=== PATIENT | male | born 1990 | race African-American/Black ===

== ENCOUNTER 2017-11-05 07:37 | Emergency (ER) | payer BC, OTHER ==
--- NOTE | 2017-11-05 10:19 | RAD ---
THREE VIEWS RIGHT WRIST: DATE: 11/05/17. HISTORY: The patient re-injured the wrist at work. History of prior fracture. COMPARISON: 02/18/17. FINDINGS: There is a fracture involving the proximal pole of the scaphoid bone with a degree of separation jakob uring 2 mm and there is also trace lateral displacement of the distal fracture with relation to the p roximal fracture fragment. This fracture is in similar location to fracture noted on prior study in 2017. No additional fracture is seen, and there is no evidence of a dislocation. IMPRESSION: 1. and slightly displaced fracture involving the proximal pole of the scaphoid bone. This is in similar location to a fracture seen involving the scaphoid bone on the study in 2017. However , given widening and separation of this fracture fragment as well as site of fracture, orthopedic con sultation is recommended. 2. On the oblique view, there is a suggestion of a rounded area of lucency which could be related to associated cyst in the region of fracture. 3. Remote fracture deformity of the right 5th metacarpal. CODE T POS: [facility]
== END 2017-11-05 09:42 | disposition home or self-care (01) ==
LOC: ERS 07:37
DX: S62.031A Displaced fracture of proximal third of navicular [scaphoid] bone of right wrist, initial encounter for closed fracture (principal); F17.210 Nicotine dependence, cigarettes, uncomplicated; Z71.6 Tobacco abuse counseling; Z79.899 Other long term (current) drug therapy; W20.8XXA Other cause of strike by thrown, projected or falling object, initial encounter; Y92.69 Other specified industrial and construction area as the place of occurrence of the external cause; Y99.0 Civilian activity done for income or pay
CPT/HCPCS: 99406

== ENCOUNTER 2017-11-23 08:12 | Outpatient (CLI) | payer OTHER ==
--- NOTE | 2017-11-23 10:57 | MRI ---
MRI RIGHT WRIST WITHOUT CONTRAST: Date: 11/23/17 HISTORY: Pain. Fractures. COMPARISON: Wrist radiograph dated 11/05/17 and 02/18/17. FINDINGS: There is fracture of the proximal waist of the scaphoid with lack of signal on the T1-weighted sequen ce, with mild increased signal in the T1 of the proximal pole. There are some erosions of the fractur e interface suggesting micromotion. There is mild edema of the distal pole with loss of T1 signal of the fracture site. Remainder of the bones are normal. Triangular fibrocartilage is intact. The tubercle of trapezium and hook of the hamate are intact. No extensor or flexor tendon abnormalities. IMPRESSION: 1. Proximal scaphoid waist fracture with very dark signal on the T1-weighted sequence, although ther e is mild increased fluid signal suggesting some retained vascularity. Contrast enhanced MRI has incr eased specificity for viable bone. 2. Erosion of the medial margin of the second metacarpal base and lateral margin of the second metac arpal base may be from prior injury. POS: [facility]
== END 2017-11-23 08:13 | disposition home or self-care (01) ==
LOC: MRI 08:12
PROVIDERS: ATTEND Orthopaedic Surgery Hand Surgery
DX: Z03.89 Encounter for observation for other suspected diseases and conditions ruled out (principal); S62.031A Displaced fracture of proximal third of navicular [scaphoid] bone of right wrist, initial encounter for closed fracture

== ENCOUNTER 2017-11-27 07:01 | Day surgery (SDC) | payer OTHER ==
[2017-11-26 09:50] VITALS: BMI 32.1
[2017-11-27] MEDS ORDERED: Thrombin 5000 UNITS/5 ML VIAL ONE (10:40)
[2017-11-27] MEDS ORDERED: Bacitracin Zinc Ointment 30 gm TUBE ONE (10:40)
[2017-11-27] MEDS ORDERED: Sodium Chloride 0.9% 10 ML ONE (10:41)
[2017-11-27] MEDS ORDERED: Midazolam HCl 2 mg/2 ml Vial ONE (10:42)
[2017-11-27] MEDS ORDERED: Fentanyl 100 MCG/2 ML VIAL ONE (10:42)
[2017-11-27] MEDS ORDERED: CEFAZOLIN/Water 2 GM/20 ML SYRINGE ONE (10:59)
[2017-11-27] MEDS ORDERED: Bupivacaine PF 0.5% 30 ML VIAL ONE (11:42)
--- NOTE | 2017-11-27 15:15 | RAD ---
RIGHT WRIST INTRAOPERATIVE FLUOROSCOPY: History: Scaphoid fracture. FINDINGS: Intraoperative fluoroscopy is provided for internal fixation as performed by Dr. Mobley. Three spot fluoroscopic images show operative hardware overlying the wrist with placement of a single lag screw transfixing the scaphoid. POS: [facility]
[2017-11-27] MEDS ORDERED: Ketorolac Tromethamine 30 MG/ML VIAL ONE ×2 (15:40→15:47)
[2017-11-27] MEDS ORDERED: Lidocaine 1% PF 5 ML VIAL ONE (15:47)
[2017-11-27] MEDS ORDERED: ePHEDrine/0.9% NaCl/PF SYRINGE 50 mg/10 ml ONE (15:47)
[2017-11-27] MEDS ORDERED: Dexamethasone 20 MG/5 ML VIAL ONE (15:47)
[2017-11-27] MEDS ORDERED: PROPOFOL 200 MG/20 ML VIAL ONE (15:47)
[2017-11-27] MEDS ORDERED: HYDROcodone/Acetaminophen 5/325 mg Tablet ONE (16:41)
--- NOTE | 2017-11-30 14:13 | OP ---
DATE OF SURGERY: 11/27/2017 PREOPERATIVE DIAGNOSIS: Right scaphoid nonunion, proximal pole. POSTOPERATIVE DIAGNOSIS: Right scaphoid nonunion proximal pole with poor bleeding over the dorsal on e half of the proximal pole fragment, but some bleeding punctate from the volar one half making it a partial avascular or avascular proximal pole nonunion. PROCEDURES PERFORMED: 1. Right scaphoid proximal pole nonunion open reduction and internal fixation. 2. Open reduction and internal fixation of 1-2 anterior compartmental segmental artery making it a v ascularized bone graft, 8 mm in width, 5 mm in height, and 6 mm in length, then trimmed to fit, augme nted by cortical cancellous bone to fill in any gaps. ESTIMATED BLOOD LOSS: 20 mL. TOURNIQUET TIME: Two hours 39 minutes with the following technique, 20 minutes down and 2 hours infl ated at 250 mmHg pressure. INDICATION: The patient had a fracture of over 3 months old, did not heal, had a nonunion proximal p ole. The fragment was approximately 7 mm wide and again loss of only 1 to 1.5 mm of height. MRI rain wed possible prostate avascularity confirmed intraoperatively. IMPLANTS USED: Synthes 3.0 cannulated screw compression. DESCRIPTION OF PROCEDURE: After successful general LMA technique, the limb was prepped and draped. The patient had time out. The probe was brought to the field, confirmed the distal side of the nonun ion and removed the C-arm. Then had an incision made. We then re-exsanguinated him using elevation to make the vessels more prominent for harvesting. We then carried the skin incision through skin, s ubcutaneous tissue, and entered the interval between the skin level between the second and third comp artment, but dissected now until we could visualize the first and second anterior compartmental segme ntal artery, we identified this and protected it. We then made a hole in the retinaculum approximate ly 3 mm wide to protect the pedicle outlying the graft and then turned incision to the joint itself. We made a small transverse incision with ulnar based flap over the area of nonunion, identified a no nunion using 0.45 K-wires and C-arm, open and booked it and then began to do a debridement in prepara tion. We had to remove almost 3 mm of bone proximally and 3-4 mm distally to achieve punctate bleedi ng cancellous bone. The tourniquet was deflated and for 20 minutes while we checked for this and thi s will be found the 50% punctate bleeding findings as described above. Once we had done this, we the n with the tourniquet now harvested the graft using a sagittal saw in combination with a [place] blade and osteotomes. It was a triangular wedge shape. We then shaped it to fit and then reinflated the tourniquet. Once we inflated the tourniquet, we con tinued preparation of bone and then had to pass the graft successfully underneath the tendons and thr ough this, the defect in the joint capsule. Once we placed it in place, we then had cancellous bone around as we had packed cancellous bone in the interspaces created by the debridement under the artic ular shell. We placed two guidewires, one more to one slightly more radial with more radial being . I t appeared to be in adequate position from a sagittal plane, measured and then drilled across the fra gment. We then placed more bone graft and then put the 3.0 screw in compression mode. The patient h ad excellent fixation clinically. Grossly, there were no bone graft defects, placed small amount of bone graft back in that was compressed out and the patient had excellent hemostasis. We then closed the capsule with a 3-0 Prolene in a [id number] fashion, closed the retinaculum wi th a 2-0 Vicryl [id number] pattern and then closed the skin with a running subcutaneous 4-0 [place] cryl and the skin with an epidermis with a 4-0 nylon interrupted mattress pattern. It must be noted that we placed 1 mL of Synthes bone putty in the defect where we harvested bone at the radial shaft. A bulky dressing was applied with a sugar tong splint. The patient left the operating room without evidence of anesthetic complication.
== END 2017-11-27 17:30 | disposition home or self-care (01) ==
LOC: SDC 07:01
PROVIDERS: ATTEND Orthopaedic Surgery Hand Surgery
PROC: 0PSM04Z Reposition Right Carpal with Internal Fixation Device, Open Approach (ICD-10-PCS; principal; 2017-11-27)
DX: S62.031A Displaced fracture of proximal third of navicular [scaphoid] bone of right wrist, initial encounter for closed fracture (principal); F17.210 Nicotine dependence, cigarettes, uncomplicated; Z79.899 Other long term (current) drug therapy
CPT/HCPCS: 76001; 85652; 96372; A4216; C1713; J1100; J1885; J2001; J2250; J2704; J3010; J3490; S0020